=== PATIENT | male | born 1985 | race Caucasian/White ===

== ENCOUNTER 2021-01-12 19:51 | Emergency (ER) | payer SELFPAY ==
[~2021-01-12] VITALS: Ht 190.5 cm; Wt 102.1 kg
--- NOTE | 2021-01-12 19:55 | NUR ---
PT BIBSELF C/O SWALLOWING A TOOTHPICK WHILE EATING A SANDWICH. PT AAOX4 BREATHING EVENLY AND UNLABORED. PT STATES " I WAS EATING A SANDWICHAND I THINK I BIT INTO A TOOTHPICK, SOMETHING IS SOLID AND STUCK ON THE RIGHT SIDE OF MY THROAT" PT ATTACHED TO MONITOR AND POX. PT GIVEN BLANKET AND CALL LIGHT WITHIN REACH.
--- NOTE | 2021-01-12 21:46 | NUR ---
XRAY AT BEDSIDE
--- NOTE | 2021-01-12 22:02 | NUR ---
RETURNED FOR RADIOLOGY
[2021-01-12] MEDS ORDERED: LIDOCAINE VISCOUS 2% UD 15 ML UDC ONE (23:29)
[2021-01-12] MEDS ORDERED: IBUPROFEN 600 MG TABLET PO ONE (23:30)
[2021-01-12] MEDS ORDERED: LIDOCAINE VISCOUS 2% UD 15 ML UDC MM ONE (23:30)
[2021-01-12] MEDS ORDERED: IBUPROFEN 600 MG TABLET ONE (23:30)
--- NOTE | 2021-01-12 23:37 | NUR ---
Patient discharged to home in stable condition. Written and verbal after care instructions given. Patient verbalizes understanding of instruction. PT ambulatory with a steady gait
[2021-01-12 23:46] VITALS: BP 130/89
== END 2021-01-12 23:37 | disposition home or self-care (01) ==
LOC: ER 19:59
DX: S27.818A Other injury of esophagus (thoracic part), initial encounter (principal); R09.89 Other specified symptoms and signs involving the circulatory and respiratory systems; X58.XXXA Exposure to other specified factors, initial encounter; Y93.89 Activity, other specified; Y92.89 Other specified places as the place of occurrence of the external cause; Y99.8 Other external cause status
CPT/HCPCS: 70490-TC